=== PATIENT | male | born 1960 | race Caucasian/White ===

== ENCOUNTER 2024-09-23 10:00 | Outpatient (REF) | payer OTHER, SELFPAY ==
--- NOTE | ~2024-09-23 | XR_ITS ---
CLINICAL HISTORY: M25.512 - Pain in left shoulder 2 view left shoulder Comparison: None Findings: No fractures or dislocations. AC joint hypertrophy. No erosions. No radiopaque foreign body. Partially visualized left lung is clear. IMPRESSION: 1. No acute fracture. AC joint hypertrophy. This document has been electronically signed by: Shana Soares MD on 09/24/2024 08:31:20
== END 2024-09-23 10:01 | disposition home or self-care (01) ==
LOC: HO.HOSX 10:00
PROVIDERS: Visit Provider Orthopaedic Surgery
DX: M25.312 Other instability, left shoulder (principal)
CPT/HCPCS: 73030; 99202

== ENCOUNTER 2024-09-23 12:11 | Outpatient (AMB) | payer OTHER, SELFPAY ==
--- NOTE | 2024-09-23 12:17 | A.OFFVIS_ITS ---
Intake Visit Reasons: RANCH COOK-Lt shoulder pain WC DOI: 08/08/24 Intake Note: Arnoldo is a 64 year old right hand dominant male who presents with complaints of progressively worsening left shoulder pain and weakness. The patient states that he injured his left shoulder while carrying a water heater while working on 08/08/2024. Since that time he has had weakness when lifting his left hand above shoulder height. He does continue to work. He has tried physical therapy exercises which aggravated his pain. He denies any pain in his left shoulder prior to that injury. 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 Physical Exam Const Other: Well-nourished well-developed very friendly male awake alert and oriented x3 in no acute distress Extrem Other: Bilateral upper extremity examination shows good capillary refill, no skin lesions noted, normal sensation light touch Left shoulder examination shows decreased active range motion when compared to his right shoulder, 4/5 strength with supraspinatus testing, positive impingement signs, no instability Results Reviewed Results Reviewed: X-rays of the patient's left shoulder taken today show severe acromioclavicular joint narrowing, a type 2 acromion, no acute bony abnormalities Assessment & Plan Assessment & Plan (1) Rotator cuff insufficiency of left shoulder: Code(s): M25.312 - Other instability, left shoulder Category: Medical Plan Mr. Lemon presents with left shoulder pain and weakness due to impingement syndrome and possible rotator cuff tearing. Thus, I will send the patient for an MRI of his left shoulder for further evaluation. I will see him back once the MRI is completed to discuss the findings and treatment options. He will continue with his activity modifications in the meantime. Feel free to call me at any time should questions regarding his orthopedic management arise. I spent 20 minutes in reviewing the patient's records and imaging studies, seeing the patient and documenting in the medical record. Orders: Orders MR shoulder LT wo con Today M25.312 - Other instability, left shoulder Coding Level of Care Code New Pt Level 3 (79787) Complex EM visit Add On G2211 Diagnoses Rotator cuff insufficiency of left shoulder M25.312
== END 2024-09-23 12:34 | disposition home or self-care (01) ==
LOC: HO.HOS 12:11
PROVIDERS: PCP Internal Medicine; Visit Provider Orthopaedic Surgery
DX: M25.312 Other instability, left shoulder (principal)
CPT/HCPCS: 99203; G2211

== ENCOUNTER → 2024-09-23 12:26 | Outpatient (BNV) | payer OTHER, SELFPAY | PROVIDERS: Visit Provider Radiology Diagnostic Radiology | DX: M89.312 Hypertrophy of bone, left shoulder (principal) | CPT/HCPCS: 73030 ==

== ENCOUNTER 2024-10-13 18:48 | Outpatient (REF) | payer OTHER, SELFPAY ==
--- NOTE | ~2024-10-13 | MR_ITS ---
EXAMINATION: MR SHOULDER WITHOUT CONTRAST, LEFT TECHNIQUE: Multiplanar multisequence imaging through an upper extremity joint without contrast. INDICATION: Left shoulder Work injury August 08, 2024, intermittent pain since then, swelling PRIOR: X-ray September 23, 2024 FINDINGS: Rotator Cuff: There is a deep bursal sided tear versus full thickness nonretracted tear involving supraspinatus tendon and anterior fibers of the Achilles tendon. There is also delamination component of the tear extending 2.6 cm medially. Labrum: There is tear in the superior labrum that extends posteriorly. The periosteum remains intact posteriorly. Tear extends anterosuperiorly to 11:00 and posterior inferiorly to 5-6:00. Long biceps tendon: 1.5 cm above biceps tendon appears thickened with increased signal near the biceps labral anchor consistent with a partial tear/tendinopathy. Synovial fluid tracks into the long biceps tendon sheath. Acromioclavicular joint: There are marginal osteophytes, mild reactive marrow signal change, and trace fluid in the joint. There is a small amount of fluid in subacromial subdeltoid bursa. Acromial morphology is flat, type I. Axillary pouch: The axillary pouch is intact. There is a small joint fluid Articular cartilage: There is mild thinning of articular cartilage along the inferomedial humeral head. Grade II chondromalacia. Bones/Marrow: There is reactive marrow signal change in the posterior glenoid at 3-4:00. There is mild reactive marrow signal change in the humerus adjacent to the supraspinatus tendon tear. Soft tissues: There is no muscle edema, atrophy, or fatty streaking. MR/MR shoulder LT wo con IMPRESSION: There is a deep bursal sided tear versus full-thickness and retracted tear involving supraspinatus tendon, likely minimally involving anterior fibers of infraspinatus tendon. There is also delamination component extending 2.5 cm medially. SLAP tear with involvement of the entire posterior labrum. Posterior labral periosteum is intact. There is also likely 1.5 cm extension into the adjacent long biceps tendon. Moderate AC joint arthropathy Electronically signed by: Nigel Snyder MD 10/14/2024 09:56 AM EDT
== END 2024-10-13 18:49 | disposition home or self-care (01) ==
LOC: HO.MRI 18:48
PROVIDERS: PCP Internal Medicine; Visit Provider Orthopaedic Surgery
DX: M25.312 Other instability, left shoulder (principal)
CPT/HCPCS: 73221

== ENCOUNTER → 2024-10-13 18:49 | Outpatient (BNV) | payer OTHER, SELFPAY | PROVIDERS: PCP Internal Medicine; Visit Provider Radiology Diagnostic Radiology | DX: S43.432A Superior glenoid labrum lesion of left shoulder, initial encounter (principal); M19.012 Primary osteoarthritis, left shoulder | CPT/HCPCS: 73221 ==

== ENCOUNTER 2024-11-06 15:01 | Outpatient (AMB) | payer OTHER, SELFPAY ==
--- NOTE | 2024-11-06 15:05 | MHC.OFFVIS ---
Intake Visit Reasons: OV-Left shoulder MRI review Intake Note: Arnoldo is a 64 year old right hand dominant male who presents with complaints of progressively worsening left shoulder pain and weakness. The patient states that he injured his left shoulder while carrying a water heater while working on 08/08/2024. Since that time he has had weakness when lifting his left hand above shoulder height. He does continue to work. He has tried physical therapy exercises which aggravated his pain. He denies any pain in his left shoulder prior to that injury. . 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 Physical Exam Const Other: Well-nourished well-developed very friendly male awake alert and oriented x3 in no acute distress Extrem Other: Bilateral upper extremity examination shows good capillary refill, no skin lesions noted, normal sensation light touch Left shoulder examination shows decreased active range of motion but full passive range of motion when compared to his right shoulder, 4/5 strength with supraspinatus testing, positive impingement signs, tenderness over his acromioclavicular joint, no instability Results Reviewed Results Reviewed: MRI of the patient's left shoulder show severe acromioclavicular joint narrowing, a type 2 acromion, a full-thickness tear of the supraspinatus tendon Assessment & Plan Assessment & Plan (1) Rotator cuff insufficiency of left shoulder: Code(s): M25.312 - Other instability, left shoulder Category: Medical Plan Mr. Lemon presents with left shoulder pain and weakness due to impingement syndrome, acromioclavicular joint arthritis and a full-thickness rotator cuff tear. I had a lengthy discussion with the patient regarding the treatment options. At this point he has failed continued non operative treatments. The risks and benefits of left shoulder surgery were discussed at length with the patient. The patient wishes to proceed with surgery later this year. Will contact my office to pick a surgery date when he chooses to do so. Surgery will involve left shoulder arthroscopic distal clavicle excision, left shoulder arthroscopic acromioplasty and left shoulder mini open rotator cuff repair. He will continue with his activity modifications in the meantime. Feel free to call me at any time should questions regarding his orthopedic management arise. I spent 21 minutes in reviewing the patient's records and imaging studies, seeing the patient and documenting in the medical record. Coding Level of Care Code Est Pt Level 3 (59050) Complex EM visit Add On G2211 Diagnoses Rotator cuff insufficiency of left shoulder M25.312
--- OUTSIDE RECORDS SUMMARY | 2024-11-06 15:07 | XMS_ITS | Clinical Summary ---
Author Organization [facility] [address] [facility] Address [address] [place] [address] Phone Care Team Providers Care Camp Dining Room Attendant Name Role Phone Adama Kathleen MD Primary Care Provider [phone] [phone] Allergies No known active allergies Medications allopurinoL (ZYLOPRIM) 100 mg tablet Take 1 tablet (100 mg total) by mouth 1 (one) time each day. Active amLODIPine (NORVASC) 10 mg tablet Take by mouth 1 (one) time each day. Active atorvastatin (LIPITOR) 40 mg tablet Take 1 tablet (40 mg total) by mouth at bedtime. Active metoprolol succinate (TOPROL-XL) 200 mg 24 hr tablet Take 1 tablet (200 mg total) by mouth 1 (one) time each day. Do not crush or chew. Active sildenafiL (VIAGRA) 100 mg tablet Take 1 tablet (100 mg total) by mouth 1 (one) time each day if needed for erectile dysfunction. Active warfarin (COUMADIN) 2 mg tablet Take by mouth. Active Encounters Date Type Department Care Team Description 10/29/2024 Telephone Gastroenterology - [address] [address] Campbell Mortensen MD from Last 3 Months Social History Tobacco Use Types Packs/Day Years Used Date Smoking Tobacco: Never Assessed Sex and Gender Information Value Date Recorded Sex Assigned at Not on file Legal Sex Male 8:53 AM EDT Gender Identity Not on file Sexual Orientation Not on file Plan of Treatment Upcoming Encounters Date Type Department Care Team ([facility] Contact Info) Description 01/15/2025 9:00 AM EDT Appointment [facility] Endoscopy [address] [place] [address] Campbell Mortensen MD [address] [facility] [address] [place] [address] Health Maintenance Due Date Last Done Comments DTaP,Tdap,and Td Vaccines (1 - Tdap) 1980 Pneumococcal Vaccine: 50+ Ye ars (1 of 1 - PCV) 2011 Zoster Vaccines (1 of 2) 2011 COVID-19 Vaccine (1 - 2023-2 5 season) 2023 Depression Screening 04/16/2024 Cholesterol Screening (Lipid Panel) 10/29/2024 HIV Screening 10/29/2024 Hepatitis C Screening 10/29/2024 Social Influencers of Health Screening 10/29/2024 Influenza Vaccine (#1) 2024 Colorectal Cancer Screening: Colonoscopy 10/29/2034 10/29/2024 RSV Immunization Adult Patie nts (1 - 1-dose 75+ series) 2036 HIB Vaccines Aged Out No longer eligi ble based on patient's age to complete this topic HPV Vaccines Aged Out No longer eligi ble based on patient's age to complete this topic Hepatitis A Vaccines Aged Out No long er eligible based on patient's age to complete this topic Hepatitis B Vaccines Aged Out No long er eligible based on patient's age to complete this topic IPV Vaccines Aged Out No longer eligi ble based on patient's age to complete this topic MMR Vaccines Aged Out No longer eligi ble based on patient's age to complete this topic Meningococcal ACWY Vaccine Aged Out N o longer eligible based on patient's age to complete this topic Meningococcal B Vaccine Aged Out No l onger eligible based on patient's age to complete this topic RSV Immunization Patients Un paty 20 months Aged Out No longer eligible b ased on patient's age to complete this topic Varicella Vaccines Aged Out No longer eligible based on patient's age to complete this topic Procedures Procedure Name Priority Date/Time Associated Diagnosis Comments HP LINK COLONOSCOPY Routine 10/29/2024 3:44 PM EDT from Last 3 Months Results * HM Colonoscopy (10/29/2024 3:44 PM EDT) us Historical Provider HEALTH MAINTENANCE Final Result from Last 3 Months Insurance [facility] [place] [id number] Care Teams Camp Dining Room Attendant Relationship Specialty Start Date End Date Adama Kathleen MD [address] [place] [address] PCP - General Internal Medicine 10/29/24
== END 2024-11-06 15:17 | disposition home or self-care (01) ==
LOC: HO.HOS 15:02
PROVIDERS: PCP Internal Medicine; Visit Provider Orthopaedic Surgery
DX: M25.312 Other instability, left shoulder (principal)
CPT/HCPCS: 99213; G2211

== ENCOUNTER → 2024-11-06 15:01 | Outpatient (BNVA) | payer OTHER, SELFPAY | PROVIDERS: PCP Internal Medicine; Visit Provider Orthopaedic Surgery | DX: M25.312 Other instability, left shoulder (principal) | CPT/HCPCS: 99212 ==

== ENCOUNTER 2024-12-12 07:27 | Day surgery (SDC) | payer OTHER, SELFPAY ==
--- OUTSIDE RECORDS SUMMARY | 2024-11-10 13:32 | XMS_ITS | Clinical Summary ---
Author Organization [facility] [address] [facility] Address [address] [place] [address] Phone Care Team Providers Care Physician Support Coordinator Name Role Phone Adama Kathleen MD Primary Care Provider [phone] [phone] Allergies No known active allergies Medications allopurinoL [...] Team Description 10/29/2024 Telephone Gastroenterology - [address] [address] Campbell Mortensen MD from Last 3 Months Social History Tobacco Use Types Packs/Day Years Used Date Smoking Tobacco: Never Assessed Sex and Gender Information Value Date Recorded Sex Assigned at Not on file Legal Sex Male 8:53 AM EDT Gender Identity Not on file Sexual Orientation Not on file Plan of Treatment Upcoming Encounters Date Type Department Care Team ([facility] Contact Info) Description 01/15/2025 9:00 AM EDT Appointment [facility] Endoscopy [address] [place] [address] Campbell Mortensen MD [address] [facility] [address] [place] [address] Health Maintenance Due Date Last Done Comments [...] from Last 3 Months Insurance [facility] [place] [id number] Care Teams Physician Support Coordinator Relationship Specialty Start Date End Date Adama Kathleen MD [address] [place] [address] PCP - General Internal Medicine 10/29/24
[2024-11-27 12:19] VITALS: BMI 24.7
[2024-12-12] MEDS: Lactated Ringers 1,000 ML 100 ML IVCONT (07:54)
[2024-12-12 08:03] VITALS: BP 143/78; PULSE 57; RESP 18; TEMP 36.7; O2SAT 98
[2024-12-12 08:04] VITALS: BMI 24.8
[2024-12-12 08:29] LABS: INTERNATIONAL NORM RATIO 1.0 (0.9-1.1); Prothrombin Time 11.1 SEC (10.9-12.4)
--- NOTE | 2024-12-12 08:38 | HO.ANESPROP2 ---
Documented by User: Huong Silva NP 12/10/24 14:43 HPI - Anesthesia Eval Consult details Narrative: 64yo M for Left Shoulder Arthroscopy,distal clavicle excision,Acromioplasty,with Mini Open RCR, 12/12/24 Medically optimized per [facility] clinic Warfarin for Factor V, antiphospholipid - will bridge with lovenox. - Follows [facility] Heme-Onc. Stable at 06/2024 office visit PAD s/p Superior mesenteric artery (SMA) and L popliteal artery occlusions s/p L fem-pop bypass with hospitalization 02/2023. Follows [facility] vascular - stable at 10/2024 office visit PFO - 2023 eval with [facility] - thrombotic issues likely caused by PAD, not PFO so closure not indicated - antiplatelet more favorable tx PMFSH Active Problems Active Problems: All Active Problems Rotator cuff insufficiency of left shoulder (Acute) Left shoulder pain (Acute) Past Medical History Medical History Tobacco use Occlusion of superior mesenteric artery Renal cyst PVD (peripheral vascular disease) PFO (patent foramen ovale) Thrombosis of peroneal vein Mild aortic insufficiency Liver lesion Aneurysm of left popliteal artery Melanoma Factor 5 Leiden mutation, heterozygous Abnormal finding on CT scan Coronary artery calcification seen on CAT scan Cardiomegaly Antiphospholipid syndrome Surgical History Surgical History History of ankle surgery Hx of appendectomy History of nasal surgery History of femoropopliteal bypass (~02/2023) History of local excision of skin lesion (~12/2022) Social History Social History Are you a primary vp care management to a significant other at home: No Do you presently have visiting nurse or other home services: No Patient Tobacco Use Status: Former Tobacco user Use of substances other than those prescribed or required for medical reasons: No Have you been hit, kicked, punched, or otherwise hurt by someone within the past year? 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 Meds Allergies Allergy/AdvReac Type Severity Reaction Status Date / Time No Known Allergies Allergy Verified 12/12/24 08:14 Home Medications ?Medication ?Instructions ?Recorded ?Confirmed ?Last Taken ?Type amlodipine 10 mg tablet 10 mg PO DAILY 09/23/24 11/27/24 12/12/24 History aspirin 81 mg tablet,delayed 81 mg PO DAILY 09/23/24 11/27/24 12/11/24 History release atorvastatin 40 mg tablet 40 mg PO BEDTIME 09/23/24 11/27/24 Unknown History metoprolol succinate 200 mg 200 mg PO DAILY 09/23/24 11/27/24 12/12/24 History tablet,extended release 24 hr warfarin 2 mg tablet 2 - 6 mg PO QPM 09/23/24 11/27/24 12/06/24 History enoxaparin 120 mg/0.8 mL 120 mg subcut DAILY 11/27/24 11/27/24 12/11/24 History subcutaneous syringe (Lovenox) Exam Height,Weight and Vital Signs: Height 5 ft 10.67 in Weight 79.7 kg Pertinent Lab Results Pertinent Lab Results: Lab Results?10/23/2024 07:30 AM 10/24/2024 04:05 PM [facility] [place] ?Select all results ?Test, Units ?Result ?Reference Interval ?Notes ???Select result Glucose mg/dL ?102 H ?70 ??mg/dL ??99?Select result BUN mg/dL ?14 ?8 ??mg/dL ??27?Select result Creatinine mg/dL ?0.84 ?0.76 ??mg/dL ??1.27?Select result eGFR mL/min/1.73 ?98 ?59 ??mL/min/1.73 ?Select result BUN/Creatinine Ratio ?17 ?10 ?24?Select result Sodium mmol/L ?139 ?134 ??mmol/L ??144?Select result Potassium mmol/L ?4.6 ?3.5 ??mmol/L ??5.2?Select result Chloride mmol/L ?101 ?96 ??mmol/L ??106?Select result Carbon Dioxide, Total mmol/L ?23 ?20 ??mmol/L ??29?Select result Calcium mg/dL ?9.4 ?10/23/2024 07:30 AM 10/24/2024 04:05 PM [facility] [place] ?Select all results ?Test, Units ?Result ?Reference Interval ?Notes ???Select result WBC x10E3/uL ?10 ?3.4 ??x10E3/uL ??10.8?Select result RBC x10E6/uL ?4.24 ?4.14 ??x10E6/uL ??5.8?Select result Hemoglobin g/dL ?13.9 ?13 ??g/dL ??17.7?Select result Hematocrit % ?42.9 ?37.5 ??% ??51?Select result MCV fL ?101 H ?79 ??fL ??97?Select result MCH pg ?32.8 ?26.6 ??pg ??33?Select result MCHC g/dL ?32.4 ?31.5 ??g/dL ??35.7?Select result RDW % ?15.1 ?11.6 ??% ??15.4?Select result Platelets x10E3/uL ?227 Narrative Narrative: EKG 2023 Ventricular Rate: 55 BPM Atrial Rate: 55 BPM P-R Interval: 192 ms QRS Duration: 94 ms Q-T Interval: 418 ms QTC Calculation(Bazett): 399 ms P [place]: 39 degrees R [place]: 23 degrees T [place]: 23 degrees Sinus bradycardia Otherwise normal ECG No previous ECGs available Confirmed by JOSE ZHANG MD ([id number]) on 05/23/2023 1:50:11 PM ECHO 2022 Summary The left ventricular size is normal. The left ventricular wall thickness is mildly increased. Normal LV systolic function. Ejection fraction is 55-60%. There are no regional wall motion abnormalities. Normal diastolic function. The left atrium is normal in size. There is an atrial septal aneurysm. An agitated saline study (bubble study) was performed there is evidence of right to left shunting with valsalva. The aortic valve is trileaflet. There is no aortic stenosis. There is mild aortic regurgitation. The right ventricle is normal in size and function. There is no pericardial effusion. CT Angio Chest 2022 IMPRESSION: 1. No evidence of pulmonary embolism. The aorta and great vessels are patent. 2. Short segment occlusion of the proximal SMA over a 1.0 cm segment, with more distal reconstitution. 3. Prominent mediastinal and hilar lymph nodes, nonspecific. 4. Mild cardiomegaly. Assessment and Plan Assessment Anesthesia Assessment: Chart Reviewed Documented by User: Razia Lorenz DO 12/12/24 08:40 [facility] Past Medical History Medical History Tobacco use Occlusion of superior mesenteric artery Renal cyst PVD (peripheral vascular disease) PFO (patent foramen ovale) Thrombosis of peroneal vein Mild aortic insufficiency Liver lesion Aneurysm of left popliteal artery Melanoma Factor 5 Leiden mutation, heterozygous Abnormal finding on CT scan Coronary artery calcification seen on CAT scan Cardiomegaly Antiphospholipid syndrome Family History Family history of problems with anesthesia: No Surgical History Surgical History History of ankle surgery Hx of appendectomy History of nasal surgery History of femoropopliteal bypass (~02/2023) History of local excision of skin lesion (~12/2022) History of Problems with Anesthesia: No Social History Social History Are you a primary vp care management to a significant other at home: No Do you presently have visiting nurse or other home services: No Patient Tobacco Use Status: Former Tobacco user Use of substances other than those prescribed or required for medical reasons: No Have you been hit, kicked, punched, or otherwise hurt by someone within the past year? 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 Meds Allergies Allergy/AdvReac Type Severity Reaction Status Date / Time No Known Allergies Allergy Verified 12/12/24 08:14 Home Medications ?Medication ?Instructions ?Recorded ?Confirmed ?Last Taken ?Type amlodipine 10 mg tablet 10 mg PO DAILY 09/23/24 11/27/24 12/12/24 History aspirin 81 mg tablet,delayed 81 mg PO DAILY 09/23/24 11/27/24 12/11/24 History release atorvastatin 40 mg tablet 40 mg PO BEDTIME 09/23/24 11/27/24 Unknown History metoprolol succinate 200 mg 200 mg PO DAILY 09/23/24 11/27/24 12/12/24 History tablet,extended release 24 hr warfarin 2 mg tablet 2 - 6 mg PO QPM 09/23/24 11/27/24 12/06/24 History enoxaparin 120 mg/0.8 mL 120 mg subcut DAILY 11/27/24 11/27/24 12/11/24 History subcutaneous syringe (Lovenox) Exam Exam Date and Time: 12/12/24837 Height,Weight and Vital Signs: Height 5 ft 10.67 in Weight 79.7 kg Vital Signs Temperature 98.0 F 12/12/24 08:03 Pulse Rate 57 12/12/24 08:03 Respiratory Rate 18 12/12/24 08:03 Blood Pressure 143/78 H 12/12/24 08:03 Pulse Oximetry 98 12/12/24 08:03 Oxygen Delivery Method Room Air 12/12/24 08:03 Temperature 98.0 F 12/12/24 08:03 Pulse Rate 57 12/12/24 08:03 Respiratory Rate 18 12/12/24 08:03 Blood Pressure 143/78 H 12/12/24 08:03 Pulse Oximetry 98 12/12/24 08:03 Oxygen Delivery Method Room Air 12/12/24 08:03 Airway Mallampati Class: II TM Dist: >3cm Neck ROM: Full Loose/Missing/Broken Teeth: No (patient denies any loose or broken teeth) Heart: S1S2 Lungs: CTAB Assessment and Plan Assessment Anesthesia Assessment: Anesthesia Plan Discussed and Chart Reviewed Final Anesthetic Review Family History of Problems with Anesthesia: No History of Problems with Anesthesia: No NPO: Yes ASA Class: II Final Preanesthetic Review: No Changes in Pt Med Stat, Meds/Allgs Chart Reviewed, Consent Obtained/Reviewed and Anes Risks/Benef Reviewed Patient Risk: Intermediate Procedure Risk: Intermediate Anesthetic Plan Anesthetic Plan: GA, Regional Block (left brachial plexus block) and Agree w/ Assess. and Plan Disposition: Standard PACU
[2024-12-12 10:45] VITALS: BP 124/70; PULSE 54; RESP 16; TEMP 36.1; O2SAT 97
[2024-12-12 10:50] VITALS: BP 125/68; PULSE 52; RESP 16; O2SAT 100
[2024-12-12 10:55] VITALS: BP 124/70; PULSE 51; RESP 16; O2SAT 99
[2024-12-12 11:00] VITALS: BP 125/74; PULSE 49; RESP 16; O2SAT 99
--- NOTE | 2024-12-12 11:00 | PM.OP ---
Brief Operative Note Date of Service: 12/12/24 Pre-op diagnosis: Left shoulder impingement syndrome, left shoulder acromioclavicular joint arthritis, possible left shoulder rotator cuff tear Post-op diagnosis: other (Left shoulder impingement syndrome, left shoulder acromioclavicular joint arthritis, left shoulder adhesive capsulitis) Procedure: Left shoulder arthroscopic distal clavicle excision, left shoulder arthroscopic acromioplasty, left shoulder arthroscopic anterior capsular release, left shoulder manipulation under anesthesia Implants: none Surgeon: Adan Snyder MD Anesthesia: GETA and regional Was an Revenue Liaison used for this Procedure?: No Estimated blood loss (mL): 10 Pathology: none sent Condition: stable Disposition: PACU
--- NOTE | 2024-12-12 11:01 | W.PM.OPN ---
Operative Note Operative Note Date of Service: 12/12/24 Narrative: After the patient was identified as Arnoldo Lemon and his left shoulder was initialed by myself the patient was brought to the holding area where a left shoulder interscalene regional block was performed by the anesthesiologist in routine fashion. The patient was then brought to the operating room where general anesthesia was induced by the anesthesiologist in routine fashion. The patient was given 2 g of IV Ancef preoperatively for infection prophylaxis. Examination under anesthesia of the patient's left shoulder showed decreased range of motion when compared to the right shoulder. The patient's left shoulder had forward flexion to 120 degrees compared to 170 degrees, external rotation to 30 degrees compared to 60 degrees, and internal rotation to 40 degrees compared to 60 degrees. The patient was gently positioned in the beach chair position with all bony prominences well padded. The patient's left shoulder region and upper extremity were prepped and draped in sterile fashion. A formal time-out was completed. A #11 scalpel blade was used to make a posterior portal 2 cm inferior and 1 cm medial to the posterolateral corner of the acromion. Blunt trocar technique was used to enter the glenohumeral joint in routine fashion. An anterior portal was made just lateral to the coracoid process after proper positioning was confirmed using a spinal needle. Diagnostic arthroscopy showed minimal degenerative changes of the glenoid and humeral head articular surfaces. There was no evidence of rotator cuff tearing. There was no evidence of injury to the biceps tendon or its insertion onto the glenoid. There was inflammation of the anterior joint capsule consistent with adhesive capsulitis. The ArthroCare Wand was then used to perform an anterior capsular release between the inferior border of the biceps tendon and the superior border of the subscapularis tendon. The arthroscope was then placed from the posterior portal into the subacromial space. A lateral portal was made 2 fingerbreadths lateral to the anterior lateral corner of the acromion. The ArthroCare Wand was used to ablate soft tissues along the undersurface of the acromion as well as to excise the coracoacromial ligament. There was a sharp spur along the undersurface of the acromion which was removed using the hooded bur. The arthroscope was then placed into the lateral portal and the acromioplasty was completed with the bur in the posterior portal using the posterior aspect of the acromion as a cutting block. The ArthroCare Wand was then brought in through the anterior portal and was used to ablate soft tissues along the acromioclavicular joint and distal clavicle. The posterior and superior ligamentous structures were left intact. A distal clavicle excision of 8 mm was performed using the hooded bur. Any remaining bursal tissue was removed using the arthroscopic shaver. The subacromial space was irrigated and then drained. All arthroscopic instruments were removed. A gentle manipulation under anesthesia was then performed. Full passive range of motion was easily attained. The 3 portals were closed with 3-0 nylon interrupted suture. The subacromial space was injected with Marcaine. Dry sterile dressing was placed over all incisions. The patient's left upper extremity was placed into a sling. The patient was awoken and extubated in the operating room. The patient was transferred to the recovery room in stable condition.
[2024-12-12 11:15] VITALS: BP 132/73; PULSE 50; RESP 16; TEMP 36.1; O2SAT 95
== END 2024-12-12 12:25 | disposition home or self-care (01) ==
PROVIDERS: Nurse Practitioner; PCP Internal Medicine; Visit Provider Orthopaedic Surgery
PROC: (CPT 29824; principal; 2024-12-12 10:00)
DX: M75.42 Impingement syndrome of left shoulder (principal); M75.02 Adhesive capsulitis of left shoulder; M25.312 Other instability, left shoulder; M19.012 Primary osteoarthritis, left shoulder; M25.512 Pain in left shoulder; I73.9 Peripheral vascular disease, unspecified; Z79.01 Long term (current) use of anticoagulants; Z79.82 Long term (current) use of aspirin; Z79.899 Other long term (current) drug therapy; Z87.891 Personal history of nicotine dependence; Z98.890 Other specified postprocedural states
CPT/HCPCS: 29824; 29825; 29826; 36415; 85610; J0131; J0165; J0690; J0696; J1100; J2003; J2250; J2795; J3010

== ENCOUNTER → 2024-12-12 07:27 | Outpatient (BNV) | payer OTHER, SELFPAY | PROVIDERS: PCP Internal Medicine; Visit Provider Orthopaedic Surgery | DX: M75.42 Impingement syndrome of left shoulder (principal); M19.012 Primary osteoarthritis, left shoulder | CPT/HCPCS: 29824; 29826 ==

== ENCOUNTER 2024-12-25 13:39 | Outpatient (AMB) | payer OTHER, SELFPAY ==
--- NOTE | 2024-12-25 13:42 | A.OFFVIS_ITS ---
Intake Visit Reasons: Left shoulder pain Intake Note: Arnoldo presents with complaints of mild to moderate discomfort in his left shoulder after undergoing left shoulder arthroscopic surgery on 12/12/2024. He continues with his home stretching program. He is no longer taking narcotics for his discomfort. He denies any fevers or chills. Allergies No Known Allergies Allergy (Verified 12/25/24 13:51) Medication List - Last Reviewed 12/25/24 by LAZARA Keen amlodipine 10 mg PO DAILY aspirin 81 mg PO DAILY atorvastatin 40 mg PO BEDTIME metoprolol succinate ER 200 mg PO DAILY warfarin 2 - 6 mg PO QPM [facility] Medical History Tobacco use Occlusion of superior mesenteric artery Renal cyst PVD (peripheral vascular disease) PFO (patent foramen ovale) Thrombosis of peroneal vein Mild aortic insufficiency Liver lesion Aneurysm of left popliteal artery Melanoma Factor 5 Leiden mutation, heterozygous Abnormal finding on CT scan Coronary artery calcification seen on CAT scan Cardiomegaly Antiphospholipid syndrome Surgical History (Updated 12/25/24 @ 13:53 by LAZARA Keen) History of arthroscopy of left shoulder (~12/12/24) History of ankle surgery Hx of appendectomy History of nasal surgery History of femoropopliteal bypass (~02/2023) History of local excision of skin lesion (~12/2022) Social History Are you a primary child care leader to a significant other at home: No Do you presently have visiting nurse or other home services: No Patient Tobacco Use Status: Former Tobacco user Current occupational status: employed 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 His sutures were removed and Steri-Strips placed over his incisions. He will continue with his home stretching program. He does not wish to go to formal physical therapy at this point. I will clear him to return to work once his discomfort has improved. He will contact me prior to his follow-up appointment in 6 weeks should any questions or concerns arise. Feel free to call me at any time should questions regarding his orthopedic management arise. Coding Level of Care Code Global (88049) Diagnoses Left shoulder pain M25.512
== END 2024-12-25 14:00 | disposition home or self-care (01) ==
LOC: HO.HOS 13:39
PROVIDERS: PCP Internal Medicine; Visit Provider Orthopaedic Surgery
DX: M25.512 Pain in left shoulder (principal)
CPT/HCPCS: 99024

== ENCOUNTER → 2024-12-25 13:39 | Outpatient (BNVA) | payer OTHER, SELFPAY | PROVIDERS: PCP Internal Medicine; Visit Provider Orthopaedic Surgery | DX: M25.512 Pain in left shoulder (principal) | CPT/HCPCS: 99212 ==

== ENCOUNTER 2025-02-12 11:43 | Outpatient (AMB) | payer OTHER, SELFPAY ==
--- NOTE | 2025-02-12 11:44 | A.OFFVIS_ITS ---
Vital Signs 02/12/25 11:49 Height 6 ft 1 in Weight 180 lb BMI 23.7 Handedness Right Intake Visit Reasons: Left shoulder pain Intake Note: Arnoldo is a 64 year old man who presents with complaints of mild to moderate discomfort in his left shoulder after undergoing left shoulder arthroscopic surgery on 12/12/2024. He continues with his home stretching program. He denies any fevers or chills. He has not yet returned to work. Allergies No Known Allergies Allergy (Verified 02/12/25 11:45) Medication List - Last Reconciled 02/12/25 by Adan Snyder MD amlodipine 10 mg PO DAILY aspirin 81 mg PO DAILY atorvastatin 40 mg PO BEDTIME metoprolol succinate ER 200 mg PO DAILY warfarin 2 - 6 mg PO QPM [facility] Medical History Tobacco use Occlusion of superior mesenteric artery Renal cyst PVD (peripheral vascular disease) PFO (patent foramen ovale) Thrombosis of peroneal vein Mild aortic insufficiency Liver lesion Aneurysm of left popliteal artery Melanoma Factor 5 Leiden mutation, heterozygous Abnormal finding on CT scan Coronary artery calcification seen on CAT scan Cardiomegaly Antiphospholipid syndrome Surgical History History of arthroscopy of left shoulder (~12/12/24) History of ankle surgery Hx of appendectomy History of nasal surgery History of femoropopliteal bypass (~02/2023) History of local excision of skin lesion (~12/2022) Social History Are you a primary career services coordinator to a significant other at home: No Do you presently have visiting nurse or other home services: No Patient Tobacco Use Status: Former Tobacco user Current occupational status: employed 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 Lemon continues to do well after undergoing left shoulder arthroscopic surgery on 12/12/2024. He will continue with his home stretching program. The do's and don'ts of lifting were discussed at length with the patient. I will clear him to return to work once his strength and discomfort have improved. He will contact me prior to his follow-up appointment in 2-3 months should any questions or concerns arise. Feel free to call me at any time should questions regarding his orthopedic management arise. Coding Level of Care Code Global (69712) Diagnoses Left shoulder pain M25.512
[2025-02-12 11:49] VITALS: BMI 23.7
--- OUTSIDE RECORDS SUMMARY | 2025-02-12 14:43 | XMS_ITS | Encounter Summary ---
Author Organization [facility] Address [id number] [place] [phone] Care Team Providers Care Oil And Gas Lease Pumper Name Role Phone Adama Kathleen MD Primary Care Provider [phone] Encounter Details Date Type Department Care Team (Late st Contact Info) Description 01/19/2025 Results Follow-Up Gastroenterology - [address] [place] [phone] Campbell Mortensen MD [address] [place] [phone] Social History Tobacco Use Types Packs/Day Years Used Date Smoking Tobacco: Never Assessed Interpersonal Safety Answer Date Record ed Physical Abuse Unrecognized value 01/16/2025 Verbal Abuse Unrecognized value 01/16/2025 Sex and Gender Information Value Date Recorded Sex Assigned at Not on file Legal Sex Male 8:53 AM EDT Gender Identity Not on file Sexual Orientation Not on file documented as of this encounter Plan of Treatment Not on file documented as of this encounter Goals Goal Patient Goal Type Associated Problems Recent Progress Patient-Stated? Author Autogenerat ed Goal Care Plan Autogenerated Problem No Fernanda Mars documented as of this encounter Visit Diagnoses Not on filedocumented in this encounter Additional Health Concerns Active Problems Noted Date Diagnosed Date Autogenerated Problem 01/11/2025 documented as of this encounter Care Teams Oil And Gas Lease Pumper Relationship Specialty Start Date End Date Adama Kathleen MD [address] [place] [address] PCP - General Internal Medicine 10/29/24 documented as of this encounter
--- OUTSIDE RECORDS SUMMARY | 2025-02-12 14:43 | XMS_ITS | Clinical Summary ---
Author Organization [facility] [address] [facility] Address [address] [place] [address] Phone Care Team Providers Care Pipe Line Walker Name Role Phone Adama Kathleen MD Primary Care Provider [phone] Allergies No known active allergies Medications allopurinoL [...] (COUMADIN) 2 mg tablet Take by mouth. Activ e polyethylene glycol (Golytely) 236-22.74-6.74 -5.86 gram solution Take 4L by mouth once for one dose. May substitue any PEG. Starting at 2PM the day before your procedure drink 1 8oz glasses at your own pace until you complete half of the gallon. Finish 2nd half of the gallon at 8PM. 4000 mL 5 Active bisacodyL (DULCOLAX) 5 mg EC tablet Take 2 tablets by mouth right before beginning bowel prep. See instructions provided by the office 2 tablet 5 Active aspirin 81 mg EC tablet Take 1 tablet (81 mg total) by mouth 1 (one) time each day. Active Encounters Date Type Department Care Team Description 01/19/2025 Results Follow-Up Gastroenterology - [address] [place] [address] Campbell Mortensen MD 01/16/2025 9:49 AM EDT Anesthesia Event [facility] [address] [place] [phone] Sidney Sharma DO 01/16/2025 8:19 AM EDT - 01/16/2025 11:59 PM EDT Hospital Encounter [facility] [address] [place] [phone] Campbell Mortensen MD Johnson, Lorraine, CRNA Gomes, Sheldon B, MD Colon cancer screening Discharge Disposition: Home or Self Care 01/09/2025 Telephone Gastroenterology - [address] [place] [phone] Campbell Mortensen MD from Last 3 Months Surgical History Surgery Date Site/Laterality Comments SHOULDER SURGERY Right Medical History Medical History Date Comments Hyperlipidemia Hypertension DVT (deep vein thrombosis) in Antiphospholipid antibody positive Gout Social History Tobacco Use Types Packs/Day Years Used Date Smoking Tobacco: Never Assessed Interpersonal Safety Answer Date Record ed Physical Abuse Unrecognized value 01/16/2025 Verbal Abuse Unrecognized value 01/16/2025 Sex and Gender Information Value Date Recorded Sex Assigned at Not on file Legal Sex Male 8:53 AM EDT Gender Identity Not on file Sexual Orientation Not on file Obstetrics History Last Filed Vital Signs Vital Sign Reading Time Taken Comments Blood Pressure 127/90 01/16/2025 10:34 AM EDT Pulse 57 01/16/2025 10:34 AM EDT Temperature 36.1 C (97 F) 01/16/2025 10:14 AM EDT Respiratory Rate 16 01/16/2025 10:34 AM EDT Oxygen Saturation 99% 01/16/2025 10:34 AM EDT Inhaled Oxygen Concentration - - Weight 83.9 kg (185 lb) 01/16/2025 9:20 AM EDT Height 185.4 cm (6' 1 ) 01/16/2025 9:20 AM EDT Body Mass Index 24.41 01/16/2025 9:20 AM EDT Plan of Treatment Health Maintenance Due Date Last Done Comments Hepatitis A Vaccines (1 of 2 - Risk 2-dose series) 1980 Pneumococcal Vaccine: 50+ Years (1 of 1 - PCV) 2011 RSV Immunization Adult Patients (1 - Risk 50-74 years 1-dose series) 2011 Hepatitis B Vaccines (1 of 3 - Risk 3-dose series) 2021 Depression Screening 04/16/2024 Cholesterol Screening (Lipid Panel) 10/29/2024 HIV Screening 10/29/2024 Hepatitis C Screening 10/29/2024 Social Influencers of Health Screening 10/29/2024 DTaP,Tdap,and Td Vaccines (3 - Td or Tdap) 08/08/2027 08/07/2017, 09/23/2014 Colorectal Cancer Screening: Colonoscopy 01/16/2035 01/16/2025, 10/29/2024 Zoster Vaccines Completed 08/02/2021, 05/31/2021 COVID-19 Vaccine Completed 03/24/2024, , 08/22/2020, Additional history exists Influenza Vaccine Completed 01/05/2025, , 04/30/2014 HIB Vaccines Aged Out No longer eligi [...] to complete this topic RSV Immunization Patients Under 20 months Aged Out No longer eligible based on patient's age to complete this topic Varicella Vaccines Aged Out No longer eligible based on patient's age to complete this topic Goals Goal Patient Goal Type Associated Problems Recent Progress Patient-Stated? Author Autogenerat ed Goal Care Plan Autogenerated Problem No Fernanda Mars Procedures Procedure Name Priority Date/Time Associated Diagnosis Comments COLONOSCOPY Routine 01/16/2025 10:13 AM EDT Colon cancer screening TISSUE EXAM Routine 01/16/2025 10:10 AM EDT Colon cancer screening from Last 3 Months Results * COLONOSCOPY Anesthesia - MAC; [facility] ENDOSCOPY (01/16/2025 10:13 AM EDT) Anatomical Region Laterality Modality Endoscopy 01/16/2025 9:57 AM EDT Impressions 01/16/2025 10:13 AM EDT - One 6 mm polyp in the rectum, removed with a cold snare. Resected and retrieved. - The examination was otherwise normal on direct and retroflexion views. Recommendation: - Await pathology results. - Repeat colonoscopy for surveillance based on pathology results. Narrative 01/16/2025 10:13 AM EDT [facility] GI Patient Name: Micaela Lemon Procedure Date: 01/16/2025 9:57 AM Date of : 1960 Age: 64 Room: ROOM 15 Gender: Male Note Status: Finalized Attending MD: Campbell Mortensen MD, Procedure Date No Time: 01/16/2025 Procedure: Colonoscopy Indications: Screening for colorectal malignant neoplasm Providers: Campbell Mortensen MD Referring MD: Campbell Mortensen MD Medicines: Propofol per Anesthesia Complications: No immediate complications. Estimated Blood Loss: Estimated blood loss was minimal. Procedure: Pre-Anesthesia Assessment: - ASA Grade Assessment: II - A patient with mild systemic disease. After I obtained informed consent, the scope was passed under direct vision. Throughout the procedure, the patient's blood pressure, pulse, and oxygen saturations were monitored continuously.The Colonoscope was introduced through the anus and advanced to the cecum, identified by appendiceal orifice and ileocecal valve. The colonoscopy was performed without difficulty. The patient tolerated the procedure well. The quality of the bowel preparation was good. Findings: The perianal and digital rectal examinations were normal. A 6 mm polyp was found in the rectum. The polyp was sessile. The polyp was removed with a cold snare. Resection and retrieval were complete. The exam was otherwise without abnormality on direct and retroflexion views. Procedure Code(s): --- Professional --- 28390, Colonoscopy, flexible; with removal of tumor(s), polyp(s), or other lesion(s) by snare technique Diagnosis Code(s): --- Professional --- Z12.11, Encounter for screening for malignant neoplasm of colon D12.8, Benign neoplasm of rectum CPT copyright 2020 [employer]. All rights reserved. The codes documented in this report are preliminary and upon medical record coder review may be revised to meet current compliance requirements. Campbell Mortensen MD 01/16/2025 10:13:30 AM This report has been signed electronically.Campbell Mortensen MD Number of Addenda: 0 Note Initiated On: 01/16/2025 9:57 AM Scope In: Scope Out: Endoscopy Department at [facility] - [address] [place] [phone] Procedure Note Campbell Mortensen MD - 01/16/2025 [facility] GI Patient Name: Micaela Lemon Procedure Date: 01/16/2025 9:57 AM Date of : 1960 Age: 64 Room: ROOM 15 Gender: Male Note Status: Finalized Attending MD: Campbell Mortensen MD, Procedure Date No Time: 01/16/2025 Procedure: Colonoscopy Indications: Screening for colorectal malignant neoplasm Providers: Campbell Mortensen MD Referring MD: Campbell Mortensen MD Medicines: Propofol per Anesthesia Complications: No immediate complications. Estimated Blood Loss: Estimated blood loss was minimal. Procedure: Pre-Anesthesia Assessment: - ASA Grade Assessment: II - A patient with mild systemic disease. After I obtained informed consent, the scope was passed under direct vision. Throughout theprocedure, the patient's blood pressure, pulse, and oxygen saturations were monitored continuously.The Colonoscope was introduced through the anus and advanced to the cecum, identified by appendiceal orifice and ileocecal valve. The colonoscopy was performed without difficulty. The patient tolerated the procedure well. The quality of the bowel preparation was good. Findings: The perianal and digital rectal examinations were normal. A 6 mm polyp was found in the rectum. The polyp was sessile. The polyp was removed with a cold snare. Resection and retrieval were complete. The exam was otherwise without abnormality ondirect and retroflexion views. Procedure Code(s): --- Professional --- 99721, Colonoscopy, flexible; with removal of tumor(s), polyp(s), or other lesion(s) by snare technique Diagnosis Code(s): --- Professional --- Z12.11, Encounter for screening for malignantneoplasm of colon D12.8, Benign neoplasm of rectum CPT copyright 2020 [employer]. All rights reserved. The codes documented in this report are preliminary and upon medical record coder reviewmay be revised to meet current compliance requirements. Campbell Mortensen MD 01/16/2025 10:13:30 AM This report has been signed electronically.Campbell Mortensen MD Number of Addenda: 0 Note Initiated On: 01/16/2025 9:57 AM Scope In: Scope Out: Endoscopy Department at [facility] - [address] [place] [phone] IMPRESSION: - One 6 mm polyp in the rectum, removed with a cold snare. Resected and retrieved. - The examination was otherwise normal on directand retroflexion views. Recommendation: - Await pathology results. - Repeat colonoscopy for surveillance based on pathology results. us Campbell Mortensen MD GI~PROCEDURE ORDERABLES Fin al Result * Tissue exam (01/16/2025 10:10 AM EDT) Final Diagnosis A. Large Intestine, Rectum, polyp x1: - Hyperplastic polyp. 01/19/2025 12:10 PM EDT [facility] at 1210 EDT Gross Description A. Large Intestine, Rectum, polypX1: Labeled polyp x 1 LI rectum . Received in formalin is a soft, coleman-pink polypoid tissue with attached mucosa measuring 0.4 cm in greatest diameter, which is inked black at the base, wrapped in paper and submitted in toto in one cassette, one piece, multiple levels. TS 01/19/2025 12:10 PM EDT [facility] Disclaimer Unless otherwise specified, all tissue is 10% NB formalin fixed and paraffin embedded. 01/19/2025 12:10 PM EDT [facility] Tissue Rectum structure / Unknown 01/16/2025 10:10 AM EDT 01/16/2025 10:40 AM EDT us Campbell Mortensen MD LAB PATHOLOGY ORDERABLES Fi nal Result [facility] ([facility] [address] [place] [address], from Last 3 Months Additional Health Concerns Active Problems Noted Date Diagnosed Date Autogenerated Problem 01/11/[address] [facility] [address] [place] [address] Care Teams Pipe Line Walker Relationship Specialty Start Date End Date Adama Kathleen MD [address] [place] [address] PCP - General Internal Medicine 10/29/24
== END 2025-02-12 12:01 | disposition home or self-care (01) ==
LOC: HO.HOS 11:44
PROVIDERS: PCP Internal Medicine; Visit Provider Orthopaedic Surgery
DX: M25.512 Pain in left shoulder (principal)
CPT/HCPCS: 99024

== ENCOUNTER → 2025-02-12 11:43 | Outpatient (BNVA) | payer OTHER, SELFPAY | PROVIDERS: PCP Internal Medicine; Visit Provider Orthopaedic Surgery | DX: M25.512 Pain in left shoulder (principal) | CPT/HCPCS: 99212 ==

== ENCOUNTER 2025-04-15 10:12 | Outpatient (AMB) | payer OTHER, SELFPAY ==
--- NOTE | 2025-04-15 10:15 | A.OFFVIS_ITS ---
Intake Visit Reasons: OV-Lt RTC Repair 12/12/24-two month follow up Intake Note: Arnoldo is a 65 year old male who presents today for his left shoulder pain. He did undergo left shoulder surgery on 12/12/24. Patient reports he is having pain in the left tricep when he does certain movements such as reaching over his body to do things like soap his body, put on his shirt/jacket and any movement across body. He is doing PT twice a week and home exercises with a cane but says he is finding mild relief. He is due to complete physical therapy at the end of April. He has not yet returned to work. Allergies No Known Allergies Allergy (Verified 02/12/25 11:45) Medication List - Last Reconciled 04/15/25 by Adan Snyder MD amlodipine 10 mg PO DAILY aspirin 81 mg PO DAILY atorvastatin 40 mg PO BEDTIME metoprolol succinate ER 200 mg PO DAILY warfarin 2 - 6 mg PO QPM [facility] Medical History Tobacco use Occlusion of superior mesenteric artery Renal cyst PVD (peripheral vascular disease) PFO (patent foramen ovale) Thrombosis of peroneal vein Mild aortic insufficiency Liver lesion Aneurysm of left popliteal artery Melanoma Factor 5 Leiden mutation, heterozygous Abnormal finding on CT scan Coronary artery calcification seen on CAT scan Cardiomegaly Antiphospholipid syndrome Surgical History History of arthroscopy of left shoulder (~12/12/24) History of ankle surgery Hx of appendectomy History of nasal surgery History of femoropopliteal bypass (~02/2023) History of local excision of skin lesion (~12/2022) Social History Are you a primary respiratory care instructor to a significant other at home: No Do you presently have visiting nurse or other home services: No Patient Tobacco Use Status: Former Tobacco user Current occupational status: employed 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 Gadoury continues to do fairly well after undergoing left shoulder arthroscopic surgery on 12/12/2024. He will complete physical therapy during the month of April. We will plan on him returning to work in May. The do's and don'ts of lifting were discussed at length with the patient. He will contact me prior to his follow-up appointment in 3 months should any questions or concerns arise. Feel free to call me at any time should questions regarding his orthopedic management arise. I spent 22 minutes in reviewing the patient's records and imaging studies, seeing the patient and documenting in the medical record. Coding Level of Care Code Est Pt Level 3 (30703) Add On Problem Visit Only Diagnoses Left shoulder pain M25.512
--- OUTSIDE RECORDS SUMMARY | 2025-04-15 11:18 | XMS_ITS | Clinical Summary ---
Author Organization [facility] [address] Address [address] [place] [address] Phone Care Team Providers Care Head Greenskeeper Name Role Phone Adama Kathleen MD Primary Care Provider [phone] Allergies No known active allergies Medications allopurinoL [...] Results Follow-Up Gastroenterology - [address] [place] [phone] Campbell Mortensen MD 01/16/2025 9:49 AM EDT Anesthesia Event [facility] [address] [place] [phone] Sidney Sharma DO 01/16/2025 8:19 AM EDT - 01/16/2025 11:59 PM EDT Hospital Encounter [facility] [address] [place] [phone] Campbell Mortensen MD Johnson, Lorraine, CRNA Gomes, Sheldon B, MD Colon cancer screening Discharge Disposition: Home or Self Care from Last 3 Months Surgical History Surgery [...] on file Sexual Orientation Not on file Last Filed Vital Signs Vital Sign Reading [...] 10/29/2024 Social Influencers of Health Screening 10/29/2024 COVID-19 Vaccine ( season) 2024 03/24/2024, 04/07/2021, 08/22/2020, Additional history exists DTaP,Tdap,and Td Vaccines (3 - Td or Tdap) 08/08/2027 08/07/2017, 09/23/2014 Colorectal Cancer Screening: Colonoscopy 01/16/2035 01/16/2025, 10/29/2024 Zoster Vaccines Completed 08/02/2021, 05/31/2021 Influenza Vaccine Completed 01/05/2025, , 04/30/2014 HIB [...] Months Results * COLONOSCOPY Anesthesia - MAC; [facility] ENDOSCOPY (01/16/2025 10:13 AM EDT) Anatomical Region [...] pathology results. Narrative 01/16/2025 10:13 AM EDT [facility] GI Patient Name: Micaela Lemon [...] retroflexion views. Procedure Code(s): --- Professional --- 82283, Colonoscopy, flexible; with removal of tumor(s), polyp(s), or other lesion(s) by snare technique Diagnosis Code(s): --- Professional --- Z12.11, Encounter for screening for malignant neoplasm of colon D12.8, Benign neoplasm of rectum CPT copyright 2020 [employer]. All rights reserved. The codes documented in this report are preliminary and upon medical biller coder review may be revised to meet current compliance requirements. Campbell Mortensen MD 01/16/2025 10:13:30 AM This report has been signed electronically.Campbell Mortensen MD Number of Addenda: 0 Note Initiated On: 01/16/2025 9:57 AM Scope In: Scope Out: Endoscopy Department at [facility] - [address] [place] [phone] Procedure Note Campbell Mortensen MD - 01/16/2025 [facility] GI Patient Name: Micaela Lemon [...] retroflexion views. Procedure Code(s): --- Professional --- 41076, Colonoscopy, flexible; with removal of tumor(s), polyp(s), or other lesion(s) by snare technique Diagnosis Code(s): --- Professional --- Z12.11, Encounter for screening for malignantneoplasm of colon D12.8, Benign neoplasm of rectum CPT copyright 2020 [employer]. All rights reserved. The codes documented in this report are preliminary and upon medical biller coder reviewmay be revised to meet current compliance requirements. Campbell Mortensen MD 01/16/2025 10:13:30 AM This report has been signed electronically.Campbell Mortensen MD Number of Addenda: 0 Note Initiated On: 01/16/2025 9:57 AM Scope In: Scope Out: Endoscopy Department at [facility] - [address] [place] [id number] IMPRESSION: - One 6 mm polyp in the rectum, removed with a cold snare. Resected and retrieved. - The examination was otherwise normal on directand retroflexion views. Recommendation: - Await pathology results. - Repeat colonoscopy for surveillance based on pathology results. Campbell Mortensen MD GI~PROCEDURE ORDERABLES Fin al Result * Tissue exam (01/16/2025 10:10 AM EDT) Final Diagnosis A. Large Intestine, Rectum, polyp x1: - Hyperplastic polyp. 01/19/2025 12:10 PM EDT [facility] at 1210 EDT Gross [...] multiple levels. TS 01/19/2025 12:10 PM EDT [facility] Disclaimer Unless otherwise specified, all tissue is 10% NB formalin fixed and paraffin embedded. 01/19/2025 12:10 PM EDT [facility] Tissue Rectum structure / Unknown 01/16/2025 10:10 AM EDT 01/16/2025 10:40 AM EDT us Campbell Mortensen MD LAB PATHOLOGY ORDERABLES Fi nal Result [facility] [address] [place] [address], from Last 3 Months Additional Health Concerns Active Problems Noted Date Diagnosed Date Autogenerated Problem 01/11/2025 Insurance [facility] [address] [place] [address] Care Teams Head Greenskeeper Relationship Specialty Start Date End Date Adama Kathleen MD [address] [place] [address] PCP - General Internal Medicine 10/29/24
== END 2025-04-15 10:47 | disposition home or self-care (01) ==
LOC: HO.HOS 10:13
PROVIDERS: PCP Internal Medicine; Visit Provider Orthopaedic Surgery
DX: M25.512 Pain in left shoulder (principal)
CPT/HCPCS: 99213; G2211

== ENCOUNTER → 2025-04-15 10:12 | Outpatient (BNVA) | payer OTHER, SELFPAY | PROVIDERS: PCP Internal Medicine; Visit Provider Orthopaedic Surgery | DX: Z47.89 Encounter for other orthopedic aftercare (principal); G89.18 Other acute postprocedural pain; M25.512 Pain in left shoulder | CPT/HCPCS: 99212 ==